=== PATIENT | female | born 1995 | race African-American/Black ===

== ENCOUNTER 2021-11-19 19:19 | Emergency (ER) | payer SELFPAY ==
[~2021-11-19] VITALS: Ht 165.1 cm; Wt 78.8 kg
[2021-11-19 19:52] VITALS: BP 179/108
== END 2021-11-19 23:38 | disposition left against medical advice (07) ==
LOC: ER 19:19
DX: Z53.21 Procedure and treatment not carried out due to patient leaving prior to being seen by health care provider (principal)